=== PATIENT | male | born 1995 | race Hispanic/Latino ===

== ENCOUNTER 2019-10-28 17:56 | Observation (INO) | payer BC ==
[~2019-10-28 17:56] MED LIST: Iopamidol-370 76% 500 ML 1 ML ONE
[2019-10-28] MEDS ORDERED: Ondansetron PF 4 MG/2 ML Vial ONE ×2 (19:11→23:12)
[2019-10-28 19:20] LABS: #Lymphocytes 0.5 thou/uL (1.20-3.40); #Neutrophils 16.4 thou/uL (1.40-6.50); %Eosinophils 0.2 % (0.0-10.0); %Monocytes 5.3 % (0.0-10.0); %Neutrophils 91.5 % (42.0-75.0); Hemoglobin 14.5 g/dL (14.0-18.0); Mean Corpuscular HGB CONC 34.3 g/dL (32.0-36.0); Mean Corpuscular Hemoglobin 32.2 pg (27.0-31.0); Mean Platelet Volume 9.8 fL (7.4-10.4); Platelet Count 179 thou/uL (130-400); RBC Distribution Width 11.8 % (11.5-14.5); Red Blood Cell (RBC) Count 4.51 mill/uL (4.70-6.10); White Blood Cell (WBC) Count 17.9 thou/uL (4.8-10.8)
[2019-10-28 19:44] LABS: ALT (SGPT) 12 U/L (8-55); AST (SGOT) 21 U/L (5-34); Albumin 4.8 g/dL (3.5-5.0); Alkaline Phosphatase 79 U/L (40-110); Anion Gap 16 mmol/L (10-20); BUN (Urea Nitrogen) 10 mg/dL (8.9-20.6); Calc. Creatinine Clearance 0 mL/min (70-130); Calcium 10.2 mg/dL (7.8-10.44); Carbon Dioxide 19 mmol/L (22-29); Chloride 101 mmol/L (98-107); Estimated GFR-MDRD Greater than 90; Globulin 3.4 g/dL (2.4-3.5); Glucose 134 mg/dL (70-105); Lipase 6 U/L (8-78); Potassium 3.4 mmol/L (3.5-5.1); Protein, Total 8.2 g/dL (6.0-8.3); Sodium 133 mmol/L (136-145)
[2019-10-28] MEDS ORDERED: Ketorolac Tromethamine 30 MG/ML VIAL ONE ×2 (21:03→23:12)
[2019-10-28] MEDS ORDERED: Piperacillin/Tazobactam 3.375 GM VIAL ONE (21:57)
[2019-10-28] MEDS ORDERED: Morphine 4 MG/ML VIAL ONE (21:57)
[2019-10-28] MEDS ORDERED: Bupivacaine 0.25% HCL 30 ML VIAL ONE (22:47)
[2019-10-28] MEDS ORDERED: Lidocaine 2% w/Epinephrine 1:200K 20 ML VIAL ONE (22:47)
[2019-10-28] MEDS ORDERED: Fentanyl 100 MCG/2 ML VIAL ONE (23:02)
[2019-10-28] MEDS ORDERED: HYDROmorphone 0.5 MG/0.5 ML SYRINGE ONE (23:02)
[2019-10-28] MEDS ORDERED: Lidocaine 1% PF 5 ML VIAL ONE (23:12)
[2019-10-28] MEDS ORDERED: PHENYLEPHRINE-NS 100 MCG/ML 10 ML SYRINGE ONE (23:12)
[2019-10-28] MEDS ORDERED: Dexamethasone 20 MG/5 ML VIAL ONE (23:12)
[2019-10-28] MEDS ORDERED: Glycopyrrolate 0.2 MG/ML 5 ML SYRINGE ONE (23:12)
[2019-10-28] MEDS ORDERED: PROPOFOL 200 MG/20 ML VIAL ONE (23:12)
[2019-10-28] MEDS ORDERED: Rocuronium Bromide 10 MG/ML (10ML VIAL) ONE (23:12)
--- NOTE | 2019-10-28 23:34 | HP ---
CHIEF COMPLAINT: Right lower quadrant abdominal pain with nausea and vomiting. HISTORY OF PRESENT ILLNESS: The patient is a 24-year-old male. He speaks no [place] and examination is conducted in [place]. He gives a 2 to 3 day history of abdominal pain. He began vomiting today. He presented to the emergency room for further evaluation. Evaluation in the emergency room revealed elevated white blood cell count of 17.9. Hemoglobin is normal at 14.5. Chemistry showed no significant abnormality. CT scan reveals obvious changes of acute appendicitis. PAST MEDICAL HISTORY: Negative. PAST SURGICAL HISTORY: None. MEDICATIONS: None. ALLERGIES: NONE. PERSONAL AND SOCIAL HISTORY: He is single with no children. He does not smoke cigarettes nor does he drink alcohol. He works at a [employer] and [place] and is originally from [facility]. REVIEW OF SYSTEMS: Otherwise, unremarkable. FAMILY HISTORY: Noncontributory. PHYSICAL EXAMINATION: VITAL SIGNS: He is afebrile. Vital signs within normal limits. GENERAL: He is a well-developed, well-nourished, pleasant, and thin male, resting in bed, in no acute distress. He is alert and oriented x3, and conversant. HEAD, EYES, EARS, NOSE, AND THROAT: Unremarkable. NECK: Supple without mass or tenderness. LUNGS: Clear to auscultation throughout. CARDIAC: Regular rate and rhythm without murmur. ABDOMEN: Soft with focal tenderness in the right lower quadrant. EXTREMITIES: Unremarkable. ASSESSMENT: The patient with acute appendicitis. PLAN: Laparoscopic appendectomy. I discussed the operation in detail with the patient as well as potential risks. He understands and agrees to proceed with surgery at this time. Job ID: [id number]
[2019-10-28] MEDS ORDERED: Promethazine HCl 25 MG/ML VIAL IM PRN (23:52)
[2019-10-28] MEDS ORDERED: HYDROmorphone 2 MG/ML VIAL SLOW IVP PRN (23:52)
[2019-10-28] MEDS ORDERED: Ondansetron HCl/PF 4 MG/2 ML Vial IVP PRN (23:52)
[2019-10-28] MEDS ORDERED: PACU-Morphine 4MG/ML VIAL SLOW IVP PRN (23:52)
[2019-10-28] MEDS ORDERED: Promethazine HCl 25 MG/ML VIAL SLOW IVP PRN (23:52)
[2019-10-29] MEDS ORDERED: HYDROcodone/Acetaminophen 10/325 mg Tablet PO PRN (00:46)
[2019-10-29] MEDS ORDERED: Promethazine HCl 25 MG/ML VIAL IM PRN (00:46)
[2019-10-29] MEDS ORDERED: Dextrose 5% in Water 1,000 ML IV PRN (00:46)
[2019-10-29] MEDS ORDERED: D5 1/2 NS w/20 mEq KCL 1,000 ML IV SCH (00:46)
[2019-10-29] MEDS ORDERED: Morphine 2 MG/ML SYRINGE SLOW IVP PRN (00:46)
[2019-10-29] MEDS ORDERED: Ondansetron PF 4 MG/2 ML Vial IVP PRN (00:46)
[2019-10-29] MEDS ORDERED: Dextrose 50% Abboject 50 ML SYRINGE SLOW IVP PRN (00:46)
[2019-10-29] MEDS ORDERED: hydrALAZINE 20 MG/ML VIAL SLOW IVP PRN (00:46)
[2019-10-29 02:16] VITALS: BMI 17.8
[2019-10-29 05:21] LABS: Band 27 % (5-11); Hemoglobin 12.8 g/dL (14.0-18.0); Lymphocytes 3 % (21-51); MDiff Complete? YES; Mean Corpuscular HGB CONC 32.7 g/dL (32.0-36.0); Mean Corpuscular Hemoglobin 31.1 pg (27.0-31.0); Mean Corpuscular Volume 95.1 fL (78.0-98.0); Mean Platelet Volume 9.4 fL (7.4-10.4); Monocytes 1 % (0-10); Neutrophil 69 % (42-75); Platelet Count 159 thou/uL (130-400); Platelet Morphology Comment Appears Adequate; White Blood Cell (WBC) Count 20.4 thou/uL (4.8-10.8)
[2019-10-29] MEDS ORDERED: Ketorolac Tromethamine 30 MG/ML VIAL IVP SCH (06:00)
--- NOTE | 2019-10-29 07:12 | CT ---
CT ABDOMEN AND PELVIS WITH IV CONTRAST: Oral contrast was given. INDICATION: Right lower quadrant pain. Assess for appendicitis. FINDINGS: Lung bases clear. Liver, spleen, pancreas, adrenal glands, and kidneys appear unremarkable. Small bowel loops normal caliber. The appendix is dilated measuring up to 13 mm diameter. There is mild wall enhancement. There are g as pockets within this appendix but this is predominantly fluid-filled. There is mild inflammatory c hange. Findings are consistent with appendicitis. No evidence of abscess or rupture. No evidence o f extraluminal gas or fluid. Images through the pelvis show unremarkable urinary bladder. The seminal vesicles look mildly promin ent. A tiny amount of free fluid in the deep pelvis. IMPRESSION: Dilated mildly inflated appendix consistent with appendicitis. No evidence of extraluminal gas or fl uid. Findings related to Dr. Cordero. CODE CR POS: [id number]
[2019-10-29 08:11] VITALS: BP 89/50; TEMP 98.7
[2019-10-29] MEDS ORDERED: Famotidine 20 MG TAB PO SCH (09:00)
[2019-10-29] MEDS ORDERED: Famotidine/PF 20 mg/2ml Vial SLOW IVP SCH (09:00)
--- NOTE | 2019-11-01 06:47 | OP ---
DATE OF PROCEDURE: 10/28/2019 PREOPERATIVE DIAGNOSIS: Acute appendicitis. POSTOPERATIVE DIAGNOSIS: Acute appendicitis. PROCEDURE PERFORMED: Laparoscopic appendectomy. ANESTHESIA: General endotracheal. INDICATIONS: The patient is a 24-year-old male. He presents to the emergency room complaining of right lower quadrant abdominal pain. CT scan demonstrates obvious inflamed and an enlarged appendix. He is taken to the operating room at this time for laparoscopic appendectomy. DESCRIPTION OF PROCEDURE: Informed consent was obtained. The patient was taken to the operating room, where general endotracheal anesthesia obtained with the patient in supine position. Abdomen was prepped with ChloraPrep and draped in sterile fashion. Local anesthetic was infiltrated. A 5-mm infraumbilical incision was created through which a Veress needle was passed into the peritoneal cavity. Pneumoperitoneum was established using carbon dioxide up to pressure of 15 mmHg. A 5-mm trocar port was passed through the same incision. Laparoscopic camera was passed through this port. Under direct vision, 2 additional ports were placed including a 5-mm left lower quadrant port and a 12-mm suprapubic port. Attention was turned to the right lower quadrant. The patient had a very large and obviously inflamed appendix consistent with acute appendicitis. Mesoappendix was grasped and dissected down to the base of the appendix. The appendix was skeletonized using electrocautery. The appendix was still quite enlarged at the base and I therefore decided to divide this with a stapler. The TRICE stapler with a blue load was fired across the base of the appendix to include a cuff of the cecum. The appendix was placed in a specimen retrieval sac and removed through the suprapubic port site. The fascia was closed with 0 Vicryl suture using a GraNee needle. The staple line was inspected and found to be hemostatic. There was no evidence of any bleeding. There had certainly been no perforation. The right lower quadrant pelvis was irrigated. All irrigant was aspirated. Ports and instruments were removed under direct vision. Pneumoperitoneum was carefully evacuated. All ports and instruments were removed under direct vision. Additional local anesthetic was infiltrated in each port site. Skin edges approximated with 4-0 Monocryl subcuticular suture and Dermabond was placed externally. There were no complications. The patient tolerated the procedure well and was taken to recovery room in stable condition. Job ID: [id number]
== END 2019-10-29 08:51 | disposition home or self-care (01) ==
LOC: ERS 17:56 → SDC/OP 22:53 → SURG B 10-29 00:01
PROVIDERS: ADMIT Specialist; ATTEND Specialist
PROC: 0DTJ4ZZ Resection of Appendix, Percutaneous Endoscopic Approach (ICD-10-PCS; principal; 2019-10-29)
DX: K35.33 Acute appendicitis with perforation, localized peritonitis, and gangrene, with abscess (principal)
CPT/HCPCS: 36415; 74177; 80053; 82550; 83690; 85025; 86850; 86900; 86901; 88304; 96361; 96365; 96372; 96375; 96376; G0378; J0500; J1100; J1170; J1885; J2001; J2270; J2405; J2543; J2704; J3010; Q9967; S0020